=== PATIENT | female | born 1995 | race Caucasian/White ===

== ENCOUNTER 2021-10-11 00:46 | Emergency (ER) | payer MEDICAID ==
[~2021-10-11] VITALS: Ht 172.7 cm; Wt 90.9 kg
[2021-10-11 00:53] VITALS: TEMP 97.8
[2021-10-11 01:18] LABS: COLLECTION METHOD CLEAN CATCH
[2021-10-11 01:22] LABS: BASO # 0.1 K/mm3 (0.0-0.2); BASO % 0.4 % (0.0-2.0); EOS # 0.6 K/mm3 (0.0-0.7); EOS % 4.8 % (0.0-4.0); GRAN # 7.2 K/mm3 (1.4-6.5); GRAN % 57.7 % (42.2-75.2); HEMATOCRIT 38.5 % (37.0-47.0); HEMOGLOBIN 12.8 g/dl (12.5-16.0); LYMPH # 3.4 K/mm3 (1.2-3.4); LYMPH % 27.5 % (20.0-51.0); MEAN CELL VOLUME 85 fl (80.0-100.0); MEAN CORPUSCULAR HEMOGLOBIN 28 pg (27-31); MEAN CORPUSCULAR HGB CONC 33 g/dl (33.0-37.0); MEAN PLATELET VOLUME 10.1 fl (7.4-10.4); MONO # 1.2 K/mm3 (0.1-0.6); MONO % 9.3 % (1.7-9.3); PLATELET COUNT 394 K/mm3 (130-400); RED BLOOD COUNT 4.52 M/mm3 (4.10-5.30); REDCELL DISTRIBUTION WIDTH-CV 13.4 % (11.5-14.5)
[2021-10-11] MEDS ORDERED: PROZAC 10MG10 MG PO ×2 (01:24)
[2021-10-11 01:32] LABS: MUCOUS Present (NOT PRESENT); PH 6 (5-8); URINE APPEARANCE Hazy (CLEAR/HAZY); URINE BACTERIA Rare /hpf (NONE SEEN); URINE BLOOD 3+ (NEGATIVE); URINE COLOR Yellow (YELLOW); URINE GLUCOSE Negative (NEGATIVE); URINE KETONE Negative (NEGATIVE); URINE NITRATE Negative (NEGATIVE); URINE PROTEIN(semi-quant) Negative (NEGATIVE); URINE RBC >50 /hpf (0-2); URINE UROBILINOGEN Negative (NEGATIVE)
[2021-10-11 01:40] LABS: BILIRUBIN,TOTAL 0.3 mg/dL (0.2-1.2); CALCIUM 9.9 mg/dL (8.4-10.2); CREATININE, serum 0.9 mg/dL (0.57-1.11); POTASSIUM 3.7 mmol/L (3.5-4.5); TOTAL PROTEIN 8.4 gm/dL (6.2-8.1)
[2021-10-11 02:05] VITALS: BP 135/72; PULSE 73
== END 2021-10-11 02:08 | disposition home or self-care (01) ==
LOC: COL.ER 00:46
PROVIDERS: Nurse Practitioner
DX: N92.0 Excessive and frequent menstruation with regular cycle (principal); Z28.310 Unvaccinated for COVID-19; Z97.5 Presence of (intrauterine) contraceptive device